=== PATIENT | female | born 2000 ===

== ENCOUNTER 2022-11-13 12:47 | Emergency (ER) | payer MEDICAID, SELFPAY ==
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
[2022-11-13 12:52] VITALS: BP 150/80; PULSE 121; O2SAT 99
[2022-11-13 13:06] VITALS: BP 146/97; PULSE 101; RESP 18; TEMP 36.6; O2SAT 96; BMI 15.7
[2022-11-13] MEDS: Acetaminophen 325 MG TABLET 975 MG PO (14:33)
[2022-11-13 15:19] VITALS: BP 130/75; PULSE 89; RESP 15; TEMP 37.1; O2SAT 99
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
[2022-11-13] MEDS: hydrOXYzine HCL 25 MG TABLET PO (16:13)
== END 2022-11-13 16:22 | disposition home or self-care (01) ==
PROVIDERS: Emergency Provider Student in an Organized Health Care Education/Training Program; PCP Family Medicine
DX: S09.90XA Unspecified injury of head, initial encounter (principal); Y04.2XXA Assault by strike against or bumped into by another person, initial encounter; Y93.9 Activity, unspecified; Y92.9 Unspecified place or not applicable; Y99.9 Unspecified external cause status
CPT/HCPCS: 99283

== ENCOUNTER 2022-11-25 03:53 | Emergency (ER) | payer MEDICAID, SELFPAY ==
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
[2022-11-25 03:57] VITALS: BP 131/85; PULSE 75; RESP 18; O2SAT 99; BMI 19.5
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
[2022-11-25] MEDS: Acetaminophen 325 MG TABLET 975 MG PO (05:18)
[2022-11-25 05:41] VITALS: BP 116/75; PULSE 72; RESP 16; TEMP 37.1; O2SAT 99
== END 2022-11-25 05:46 | disposition home or self-care (01) ==
PROVIDERS: Emergency Provider Student in an Organized Health Care Education/Training Program
DX: S50.02XA Contusion of left elbow, initial encounter (principal); Y04.2XXA Assault by strike against or bumped into by another person, initial encounter; Y93.9 Activity, unspecified; Y92.9 Unspecified place or not applicable; Y99.9 Unspecified external cause status
CPT/HCPCS: 73080; 99283; 99284